=== PATIENT | female | born 1960 | race African-American/Black ===

== ENCOUNTER 2018-03-10 08:52 | Outpatient (CLI) | payer OTHER ==
--- NOTE | 2018-03-10 10:22 | XRay Report ---
LUMBOSACRAL SPINE, 3 VIEWS: History: Low back pain, disability Findings: Normal bone mineralization. There is normal height and alignment of the lumbar vertebral bodies. No evidence for fracture, subluxation or bone lesion. Mild degenerative disc disease and facet arthropathy are identified at all levels. These findings appear appropriate for this persons age. The sacrum and SI joints are within normal limits. Impression: Mild multilevel lumbar spondylosis.
--- NOTE | 2018-03-10 10:23 | XRay Report ---
AP AND LATERAL CERVICAL SPINE: History: Neck pain, disability. The vertebral bodies are well mineralized and normal in alignment and vertebral height with well preserved interspace distances. The visualized portions of the posterior elements are normal. IMPRESSION: Normal study.
== END 2018-03-10 08:53 | disposition home or self-care (01) ==
LOC: XRAY 08:52
PROVIDERS: ATTEND Internal Medicine
DX: Z02.71 Encounter for disability determination (principal); M47.896 Other spondylosis, lumbar region; M54.2 Cervicalgia; E11.9 Type 2 diabetes mellitus without complications; I10 Essential (primary) hypertension
CPT/HCPCS: 72040; 72100